=== PATIENT | female | born 1995 | race Caucasian/White ===

== ENCOUNTER 2018-02-24 08:24 | Observation (INO) ==
[2018-02-24] MEDS ORDERED: 0.9 % Sodium Chloride 1,000 ML IVC ONE (08:58)
[2018-02-24] MEDS ORDERED: Ondansetron 4 MG/2 ML VIAL IVP ONE (08:58)
[2018-02-24] MEDS ORDERED: Ketorolac 30 MG/ML VIAL IVP ONE (08:58)
[2018-02-24] MEDS ORDERED: Isovue-370 500 ML INFUS..BTL IV ONE (08:58)
--- NOTE | 2018-02-24 09:01 | Emergency Department Note ---
Disposition Clinical Impression: Acute cholecystitis Disposition: Admitted As Inpatient Condition: Good Time of Disposition: 10:36 General Adult HPI - General Chief complaint: ED Nausea/Vomiting/Diarrhea Stated complaint: Puking Time Seen by Provider: 02/24/18 08:43 Source: patient Mode of arrival: private vehicle Limitations: no limitations Nursing Notes Reviewed: Yes Vital Signs Reviewed: Yes - History of Present Illness HPI Narrative: Patient presents to the ED complaining of abdominal pain, nausea and vomiting. Symptoms began night before last and she was seen here yesterday morning for the same complaint. Laboratory studies were unremarkable and she felt better after IV fluids, Toradol and Zofran. Patient states after being discharged she threw up a few times yesterday morning and was feeling better. She was able to eat a cheeseburger yesterday evening and kept that down. She woke up again this morning however with pain and vomiting again. She states every time she vomited it is a yellowish orange liquid. This been no blood in it. Her pain is now in the right upper quadrant and she describes it as aching and stabbing. She rates it an 8 out of 10. Pain is intermittent and is not related specifically to meals or vomiting episodes. States that she took some Midol last night without improvement. She has been taking the Zofran but has continued to vomit. Her last Zofran was around 8 AM today. She is not vomited since that dose. Denies any diarrhea or constipation. She continues to have some dysuria but no frequency or urgency. No fever or chills. No recent travel. Her only abdominal surgery is a . Pain Scale: 6 - Related Data Previous Rx's Medication Instructions Recorded Ondansetron ODT [Zofran ODT] 4 mg SL Q6HR #10 tab.rapdis 02/23/18 Allergies Allergy/AdvReac Type Severity Reaction Status Date / Time No Known Allergies Allergy Verified 11/06/17 02:43 Constitutional: Denies: fever, chills, weakness, weight change Eyes: Denies: eye pain, eye discharge, vision change ENT ED: Denies: ear pain, throat pain, dental pain, hearing loss, epistaxis, congestion, dysphagia Cardiovascular: Denies: chest pain, palpitations, dyspnea on exertion, edema, syncope Respiratory: Denies: cough, dyspnea, wheezes, hemoptysis, stridor Gastrointestinal: Reports: as per HPI, abdominal pain, nausea, vomiting. Denies : diarrhea, constipation, hematemesis, melena, hematochezia Genitourinary: Reports: as per HPI, dysuria. Denies: urgency, frequency, hematuria Musculoskeletal: Denies: back pain, neck pain, arthralgia, myalgia Integumentary: Denies: rash, abrasion, lesions Neurological: Denies: headache, weakness, numbness, paresthesias, confusion, abnormal gait, vertigo Psychiatric: Denies: anxiety, depression, suicidal thoughts, homicidal thoughts , auditory hallucinations, visual hallucinations Endocrine: Denies: fatigue Hematological/Lymphatic: Denies: easy bleeding, easy bruising Allergic/Immunologic: Denies: facial swelling, urticaria Past Medical History - Past Medical History Medical history: Reports: asthma, seizures Surgical history: Reports: Psychiatric history: Reports: anxiety, bipolar BELL CAPTAIN history: Reports: no BELL CAPTAIN history - Social History Smoking Status: Current every day smoker Smokeless Tobacco Status: No Alcohol use: Reports: none Drug use: Reports: none Physical Exam - General Limitations: no limitations General appearance: alert, in no apparent distress - Head Head exam: atraumatic, normocephalic, normal inspection - Eye Eye exam: Present: normal appearance - ENT ENT exam: normal exam, normal oropharynx, mucous membranes moist - Neck Neck exam: Present: normal inspection, full ROM, trachea midline - Chest Chest inspection: Present: normal inspection, symmetric chest wall rise - Respiratory Respiratory exam: Present: normal lung sounds bilaterally - Cardiovascular Cardiovascular exam: Present: regular rate, normal rhythm, normal heart sounds - Abdominal Exam Abdominal exam: Present: soft, tenderness, normal bowel sounds. Absent: distention, guarding, rebound, rigidity, Dalton's sign Abdominal tenderness: Present: RUQ, epigastrium, moderate - Extremities Exam Extremities exam: Present: normal inspection, full ROM. Absent: tenderness, pedal edema - Back Exam Back exam: Present: normal inspection, full ROM. Absent: tenderness, CVA tenderness (R), CVA tenderness (L) - Neurological Exam Neurological exam: Present: alert, oriented X3 - Psychiatric Psychiatric exam: Present: normal affect, normal mood - Skin Skin exam: Present: warm, dry, intact, normal color Course Course Narrative: She returns to the ED with persistent intermittent upper abdominal pain, nausea and vomiting. Her laboratory workup yesterday was unremarkable. Her symptom pattern is not classic for biliary colic but given location of pain and description of what may be bilious emesis will investigate further if this possibility with repeat labs and imaging. We will give fluids along with medication for pain and nausea. Patient will be signed out to Dr. Hernandez for follow-up and final disposition based on test results and ED course. - Reevaluation(s) Reevaluation #1: Spoke with Dr. Koehler he recommended admitting the patient here to the hospitalist and he will do surgery in the morning. Patient is agreeable with this plan. He recommended pain control, antiemetics and antibiotics. Time: 10:34 Vital Signs Temperature 98.0 F 02/24/18 08:32 Pulse Rate 80 02/24/18 08:32 Respiratory Rate 16 02/24/18 08:32 Blood Pressure 147/91 02/24/18 08:32 O2 Sat by Pulse Oximetry 98 02/24/18 08:32 Temperature 98.0 F 02/24/18 08:32 Pulse Rate 80 02/24/18 08:32 Respiratory Rate 16 02/24/18 08:32 Blood Pressure 147/91 02/24/18 08:32 O2 Sat by Pulse Oximetry 98 02/24/18 08:32 Oxygen Delivery Oxygen Delivery Room Air Medical Decision Making - Medical Records Medical records reviewed: Yes I reviewed the patient's medical records. - Lab Data Lab results reviewed: Yes I reviewed the patient's lab results. Result diagrams: 02/24/18 09:05 02/24/18 09:05 Lab Results 02/24/18 02/24/18 02/24/18 Range/Units 09:03 09:03 09:05 WBC 13.1 H (4.3-11.1) K/mcL RBC 4.07 (3.82-4.97) M/mcL Hgb 12.3 (11.5-15.4) g/dL Hct 36.5 (35.3-44.9) % MCV 89.7 (83.0-100.0) fL MCH 30.2 (28.0-33.3) pg MCHC 33.7 (31.6-35.5) g/dL RDW 12.3 (11.5-14.5) % Plt Count 240 (140-400) K/mcL MPV 10.5 (9.4-12.4) fL Immature Gran % 0.4 (0-4) % Seg Neutrophils % 82.1 % Lymphocytes % 11.0 % Monocytes % 4.3 % Eosinophils % 1.8 % Basophils % 0.4 % Neutrophils # 10.8 H (1.6-8.9) K/mcL Lymphocytes # 1.4 (0.6-4.6) K/mcL Monocytes # 0.6 (0.0-1.3) K/mcL Eosinophils # 0.2 (0.0-0.6) K/mcL Basophils # 0.1 (0.0-0.2) K/mcL Sodium (136-145) mEq/L Potassium (3.5-5.1) mEq/L Chloride (98-107) mEq/L Carbon Dioxide (23-29) mEq/L BUN (6-20) mg/dL Creatinine (0.60-1.20) mg/dL Est GFR ( Amer) (> 60) Est GFR (Non-Af Amer) (> 60) BUN/Creatinine Ratio (6-26) Glucose (70-105) mg/dL Calculated Osmolality (280-300) Calcium (8.6-10.3) mg/dL Total Bilirubin (0.3-1.0) mg/dL AST (13-39) Units/L ALT (7-52) Units/L Alkaline Phosphatase (34-104) Units/L Serum Total Protein (6.4-8.9) g/dL Albumin (3.5-5.7) g/dL Globulin (2.4-3.5) g/dL Albumin/Globulin Ratio (1.1-2.2) Lipase (11-82) Units/L Urine Color Yellow (Yellow) Urine Clarity Clear (Clear) Urine pH 5.5 (5.0-8.0) pH Units Ur Specific [place] >= 1.030 H (1.010-1.025) Urine Protein 30 H (Neg-Trace) mg/dL Urine Glucose (UA) Normal (Normal) mg/dL Urine Ketones Trace H (Negative) mg/dL Urine Blood Small H (Negative) Urine Nitrite Negative (Negative) Urine Bilirubin Small H (Negative) Urine Urobilinogen Normal (Normal) mg/dL Ur Leukocyte Esterase Negative (Negative) Urine Microscopic RBC 3-5 H (0-3) per hpf Urine Microscopic WBC 0-3 (0-3) per hpf Ur Squamous Epith Cells Few (None-Few) per lpf Ur Culture Indicated? NO (NO) Urine Test Negative (Negative) 02/24/18 Range/Units 09:05 WBC (4.3-11.1) K/mcL RBC (3.82-4.97) M/mcL Hgb (11.5-15.4) g/dL Hct (35.3-44.9) % MCV (83.0-100.0) fL MCH (28.0-33.3) pg MCHC (31.6-35.5) g/dL RDW (11.5-14.5) % Plt Count (140-400) K/mcL MPV (9.4-12.4) fL Immature Gran % (0-4) % Seg Neutrophils % % Lymphocytes % % Monocytes % % Eosinophils % % Basophils % % Neutrophils # (1.6-8.9) K/mcL Lymphocytes # (0.6-4.6) K/mcL Monocytes # (0.0-1.3) K/mcL Eosinophils # (0.0-0.6) K/mcL Basophils # (0.0-0.2) K/mcL Sodium 138 (136-145) mEq/L Potassium 3.7 (3.5-5.1) mEq/L Chloride 105 (98-107) mEq/L Carbon Dioxide 26 (23-29) mEq/L BUN 10 (6-20) mg/dL Creatinine 0.60 (0.60-1.20) mg/dL Est GFR ( Amer) > 60 (> 60) Est GFR (Non-Af Amer) > 60 (> 60) BUN/Creatinine Ratio 17 (6-26) Glucose 100 (70-105) mg/dL Calculated Osmolality 285 (280-300) Calcium 9.1 (8.6-10.3) mg/dL Total Bilirubin 0.5 (0.3-1.0) mg/dL AST 10 L (13-39) Units/L ALT 8 (7-52) Units/L Alkaline Phosphatase 51 (34-104) Units/L Serum Total Protein 6.8 (6.4-8.9) g/dL Albumin 4.0 (3.5-5.7) g/dL Globulin 2.8 (2.4-3.5) g/dL Albumin/Globulin Ratio 1.4 (1.1-2.2) Lipase 8 L (11-82) Units/L Urine Color (Yellow) Urine Clarity (Clear) Urine pH (5.0-8.0) pH Units Ur Specific [place] (1.010-1.025) Urine Protein (Neg-Trace) mg/dL Urine Glucose (UA) (Normal) mg/dL Urine Ketones (Negative) mg/dL Urine Blood (Negative) Urine Nitrite (Negative) Urine Bilirubin (Negative) Urine Urobilinogen (Normal) mg/dL Ur Leukocyte Esterase (Negative) Urine Microscopic RBC (0-3) per hpf Urine Microscopic WBC (0-3) per hpf Ur Squamous Epith Cells (None-Few) per lpf Ur Culture Indicated? (NO) Urine Test (Negative) - Radiology Data Radiology results reviewed: Yes I reviewed the patient's radiology results. Patient's CT of abdomen and pelvis was interpreted by the radiologist as positive for acute cholecystitis. Results discussed with patient. Karan - Karan Situation: Demographics, MOA Background: Presenting Complaint, Relevant PMH, Meds, & Allergies Assessment: Vital Signs, Course and respsone to treatment, Exam Concerns, Patient/Family Expectation, Pertinant Lab Results, Outstanding Labs Recommendation: Barrier(s) to disposition, Recommendation based on pending studies, treatments, or consults Karan Report Given to: Dr. Mary Russo Repor Time: 09:05
[2018-02-24 09:19] LABS: Basophils # 0.1 K/mcL (0.0-0.2); Basophils % 0.4 %; Eosinophils # 0.2 K/mcL (0.0-0.6); Eosinophils % 1.8 %; Hematocrit 36.5 % (35.3-44.9); Hemoglobin 12.3 g/dL (11.5-15.4); Immature Granulocytes % 0.4 % (0-4); Lymphocytes # 1.4 K/mcL (0.6-4.6); Mean Corpuscular HGB Conc 33.7 g/dL (31.6-35.5); Mean Corpuscular Hemoglobin 30.2 pg (28.0-33.3); Mean Corpuscular Volume 89.7 fL (83.0-100.0); Mean Platelet Volume 10.5 fL (9.4-12.4); Monocytes # 0.6 K/mcL (0.0-1.3); Monocytes % 4.3 %; Neutrophils # 10.8 K/mcL (1.6-8.9); Platelet Count 240 K/mcL (140-400); Red Blood Count 4.07 M/mcL (3.82-4.97); Red Cell Distribution Width 12.3 % (11.5-14.5); Segmented Neutrophils % 82.1 %
[2018-02-24 09:29] LABS: Alanine Aminotransferase 8 Units/L (7-52); Albumin/Globulin Ratio 1.4 (1.1-2.2); Alkaline Phosphatase 51 Units/L (34-104); Aspartate Amino Transferase 10 Units/L (13-39); BUN/Creatinine Ratio 17 (6-26); Bilirubin,Total 0.5 mg/dL (0.3-1.0); Blood Urea Nitrogen 10 mg/dL (6-20); Calcium 9.1 mg/dL (8.6-10.3); Carbon Dioxide 26 mEq/L (23-29); Chloride 105 mEq/L (98-107); Globulin 2.8 g/dL (2.4-3.5); Glucose 100 mg/dL (70-105); Lipase 8 Units/L (11-82); Osmolality,Calculated 285 (280-300); Potassium 3.7 mEq/L (3.5-5.1); Sodium 138 mEq/L (136-145); Total Protein 6.8 g/dL (6.4-8.9); eGFR For Non-African Americans > 60 (> 60)
[2018-02-24 09:33] LABS: Bilirubin,Urine Small (Negative); Blood,Urine Small (Negative); Clarity,Urine Clear (Clear); Color,Urine Yellow (Yellow); Glucose,Urine (UA) Normal (Normal); Ketones,Urine Trace mg/dL (Negative); Leukocyte Esterase,Urine Negative (Negative); Nitrite,Urine Negative (Negative); PH,Urine 5.5 pH Units (5.0-8.0); Protein,Urine 30 mg/dL (Neg-Trace); Specific Gravity,Urine >= 1.030 (1.010-1.025); Urobilinogen,Urine Normal (Normal)
[2018-02-24 09:34] LABS: Squamous Epithelial Cell,Urine Few per lpf (None-Few); WBC,Urine 0-3 per hpf (0-3)
[2018-02-24] MEDS ORDERED: Piperacillin/Tazobactam 3.375 GM in 0.9 % Sodium Chloride Mini Bag 100 ML IVPB ONE (09:42)
[2018-02-24] MEDS ORDERED: Naloxone 0.4 MG/ML INJ IVP PRN (10:43)
[2018-02-24] MEDS ORDERED: Ondansetron 4 MG/2 ML VIAL IVP PRN ×2 (10:43→12:08)
[2018-02-24] MEDS ORDERED: *HR* Morphine 2 MG/ML SYRINGE IVP PRN (10:43)
[2018-02-24] MEDS ORDERED: Acetaminophen 325 MG TABLET PO PRN (10:43)
[2018-02-24] MEDS ORDERED: Piperacillin/Tazobactam 3.375 GM in Water for inj. (sterile) 20 ML 20 ML IVP ONE (11:45)
[2018-02-24] MEDS ORDERED: Piperacillin/Tazobactam 3.375 GM in Water for inj. (sterile) 20 ML 20 ML IVP SCH (12:00)
--- NOTE | 2018-02-24 12:19 | Internal Med History&Physical ---
Date of Encounter: 02/24/18 Time of Encounter: 12:34 Assessment and Plan (1) Acute cholecystitis Current visit: Yes Status: Acute Patient presented to emergency department with complaints of abdominal pain and nausea. CT of the abdomen showed acute cholecystitis with a 1.5 cm stone present. Patient was admitted to nursing unit overnight in preparation for surgery in the morning with Dr. Polk. Patient also is being admitted for pain management and management of her nausea. On presentation to the nursing unit patient states that she is pain-free at this time and denies any nausea. Patient will continue with IV fluids overnight and will be nothing by mouth after midnight. (2) Asthma Current visit: Yes Status: Chronic Patient with history of asthma and states that she continues to use a rescue inhaler of albuterol several times weekly. Patient denies any current dyspnea or productive cough. Noted slight expiratory wheeze her to upper [place]. We will continue with when necessary albuterol inhaler. We will obtain chest x- ray. Qualifiers: Asthma severity: unspecified severity Asthma persistence: unspecified Asthma complication type: unspecified Qualified Code(s): J45.909 - Unspecified asthma, uncomplicated (3) Bipolar 1 disorder Current visit: Yes Status: Chronic No acute issues. Patient appears pleasant has been interacting well with staff. Patient states that she has not been taking her psychiatric medications in over 3 years due to her complaints of drowsiness. Patient states that she no longer does follow-up with psychiatry. We will continue to monitor. (4) Seizure Current visit: Yes Status: Chronic Patient states a history of seizures but after further questioning it was noted that her only seizure activity happened remotely when she was an infant. States no further seizure activity and has never taken any AED medications Internal Medicine - H&P: HPI Chief complaint: cholecystitis Admitted From: Home Plans for Post Hospital Care: Home History of present illness: Ms. Burns is a 22 year old female who presented to the emergency department yesterday with complaints of right upper quadrant abdominal pain and vomiting. He was treated at time with Zofran and IV fluids and after showing relief was discharged to home with follow-up planned. Patient returned to the emergency department this morning with a return of these symptoms. Patient had a CAT scan of the abdomen which shows cholecystitis and the presence of a 1-1/2 cm stone. Patient was then admitted to in-house nursing unit for management of her nausea and pain and being prepared for surgery for in the morning. Patient is arranged to have surgery with Dr. Polk in the morning. Patient states that she is currently pain free and no nausea. States history of Asthma and that she has been using her rescue inhaler several times weekly. Denies any current productive cough or audible wheezing. Patient denies any dyspnea or chest discomforts. Denies any fever or chills. Patient states that she does have a history of bipolar, but states that she has not taken her medications for several years and has not had follow-up. Patient states she started taking her medication because it made her drowsy and she had to toddlers at home. Patient also states a history of seizures in the past, but after further questioning it was found that her seizures occurred when she was an infant and has not had any recurrence of seizures since that time. Patient currently takes no AED medications Past Med Surg Social Fam HX - Past Medical History Medical history: asthma, seizures Psychiatric history: anxiety, bipolar - Past Surgical History Surgical History: - Social History Smoking Status: Current every day smoker Smokeless Tobacco Status: No Alcohol use: none Drug use: none Internal Medicine - H&P: Meds Ondansetron ODT [Zofran ODT] 4 mg SL Q6HR #10 tab.rapdis 02/23/18 [Rx] Albuterol Inhaler 2 PO 02/24/18 [History] 3 Allergy/AdvReac Type Severity Reaction Status Date / Time Penicillins Allergy Vomiting Verified 02/24/18 12:58 All Systems PM: A 10-system review of systems was performed and is negative for pertinent findings except as documented above in the HPI. - Constitutional Constitutional: no chills, no fever(s), no night sweats - EENT Eyes: no change in vision, no discharge, no pain, no photophobia Ears: no ear discharge, no ear pain, no tinnitus Nose, mouth and throat: no dysphagia, no nasal discharge, no neck pain, no sore throat - Cardiovascular Cardiovascular ROS IM: as per HPI, no chest pain, no diaphoresis, no dyspnea, no lightheadedness, no palpitations, no syncope - Respiratory Respiratory: as per HPI, no cough, no dyspnea, no wheezing, no excessive phlegm production - Gastrointestinal Gastrointestinal: as per HPI, no abdominal pain, no diarrhea, no hematemesis, no hematochezia, no melena, no nausea, no vomiting - Genitourinary Genitourinary: no change in urinary stream, no dysuria, no flank pain, no hematuria - Musculoskeletal Musculoskeletal ROS IM: no numbness, no tingling - Integumentary Integumentary IM: no rash, no unusual bruising - Neurological Neurological ROS: no confusion, no convulsions, no focal weakness, no numbness, no tingling, no tremor(s) - Hematologic/Lymphatic Hematologic/Lymphatic: no easy bruising - Constitutional Vitals: Temp Pulse Resp BP Pulse Ox 98.0 F 80 16 135/72 98 02/24/18 08:32 02/24/18 08:32 02/24/18 11:42 02/24/18 11:42 02/24/18 08:32 General appearance: Present: A&O X 3, pleasant - Head Head exam: Present: atraumatic, normocephalic - Eye Eye exam: Present: PERRL, conjuntiva pink, sclera anicteric Pupils: Present: PERRL - Neck Neck exam general surgery: Present: supple, trachea midline. Absent: lymphadenopathy - Respiratory Respiratory exam: Present: CTAB, wheezes. Absent: accessory muscle use, rales, rhonchi Additional comments: Patient has slight expiratory wheeze heard to upper [place]ard but otherwise lungs are clear throughout. Respiratory effort appears relaxed. No productive cough. - Cardiovascular Cardiovascular exam: Present: RRR, +S1, +S2. Absent: diastolic murmur, gallop, rubs, systolic murmur - GI/Abdominal GI/Abdominal exam: Present: normal bowel sounds, soft, no peritoneal signs. Absent: distended, tenderness - Extremities Exam Extremities exam: Present: warm, radial pulses palpable and symmetrical. Absent : calf tenderness, cyanotic, pedal edema - Neurological Exam Neurological exam: Present: CN II-XII intact, oriented X3, no focal deficits. Absent: pronater drift, facial droop, speech deficit - Skin Skin exam: Present: dry, intact Internal Med - H&P Results - Labs CBC & Chem 7: 02/24/18 09:05 02/24/18 09:05
[2018-02-24] MEDS: 0.9 % Sodium Chloride 1,000 ML IVC SCH ×2 (13:10→20:54)
[2018-02-24] MEDS ORDERED: Clindamycin 900 MG/50 ML 900 MG/50 ML IV.SOLN IVPB ONE (13:30)
[2018-02-24] MEDS ORDERED: *HR* OxyCODONE Immed Rel 5 MG TABLET PO PRN ×2 (17:39→17:41)
[2018-02-24] MEDS ORDERED: Piperacillin/Tazobactam 3.375 GM in 0.9 % Sodium Chloride Mini Bag 100 ML IVPB SCH (18:00)
[2018-02-24] MEDS: *HR* Morphine 2 MG/ML SYRINGE IVP PRN (22:59)
[2018-02-25] MEDS: *HR* Morphine 2 MG/ML SYRINGE IVP PRN (03:27)
[2018-02-25] MEDS: 0.9 % Sodium Chloride 1,000 ML IVC SCH (04:54)
[2018-02-25 05:45] LABS: Basophils # 0.1 K/mcL (0.0-0.2); Basophils % 0.4 %; Eosinophils # 0.5 K/mcL (0.0-0.6); Eosinophils % 3.7 %; Hematocrit 32.7 % (35.3-44.9); Hemoglobin 10.9 g/dL (11.5-15.4); Immature Granulocytes % 0.3 % (0-4); Lymphocytes % 15.2 %; Mean Corpuscular HGB Conc 33.3 g/dL (31.6-35.5); Mean Corpuscular Hemoglobin 30.1 pg (28.0-33.3); Mean Corpuscular Volume 90.3 fL (83.0-100.0); Mean Platelet Volume 10.8 fL (9.4-12.4); Monocytes # 0.8 K/mcL (0.0-1.3); Monocytes % 6.3 %; Platelet Count 212 K/mcL (140-400); Red Blood Count 3.62 M/mcL (3.82-4.97); Red Cell Distribution Width 12.5 % (11.5-14.5); Segmented Neutrophils % 74.1 %
[2018-02-25 05:46] LABS: INR 1.2; Prothrombin Time 13.5 Seconds (9.4-12.1)
[2018-02-25 05:47] LABS: Neutrophils # 9.6 K/mcL (1.6-8.9)
[2018-02-25 05:49] LABS: Activated Partial Thrombo Time 30.6 Seconds (26.0-36.0)
[2018-02-25 06:01] LABS: Alanine Aminotransferase 6 Units/L (7-52); Albumin 3.5 g/dL (3.5-5.7); Albumin/Globulin Ratio 1.4 (1.1-2.2); Alkaline Phosphatase 47 Units/L (34-104); Aspartate Amino Transferase 9 Units/L (13-39); BUN/Creatinine Ratio 11 (6-26); Bilirubin,Total 0.6 mg/dL (0.3-1.0); Blood Urea Nitrogen 5 mg/dL (6-20); Calcium 8.5 mg/dL (8.6-10.3); Carbon Dioxide 25 mEq/L (23-29); Chloride 108 mEq/L (98-107); Globulin 2.5 g/dL (2.4-3.5); Glucose 100 mg/dL (70-105); Magnesium 1.7 mg/dL (1.6-2.6); Osmolality,Calculated 283 (280-300); Potassium 3.6 mEq/L (3.5-5.1); Sodium 138 mEq/L (136-145); eGFR For Non-African Americans > 60 (> 60)
[2018-02-25] MEDS ORDERED: *HR* Propofol 200 MG/20 ML VIAL IVP ONE ×2 (07:32→08:11)
--- NOTE | 2018-02-25 07:34 | Anesthesia Evaluation PreOp ---
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 History: Other (Bipolar disorder, severe anxiety, history of seizures as an ) Anesthesia History: Past Anesthesia (C/S - SAB, No GA) Alcohol Use: none Drug use: none Medications and Allergies Ondansetron ODT [Zofran ODT] 4 mg SL Q6HR #10 tab.rapdis 02/23/18 [Rx] Albuterol Inhaler 2 PO 02/24/18 [History] 3 Allergy/AdvReac Type Severity Reaction Status Date / Time Penicillins Allergy Vomiting Verified 02/24/18 12:58 - Meds/Allergy Pre-op Review Medications Reviewed: Yes Allergies Reviewed: Yes Beta Blockers on Current Med List: No Anesthesia Results - Labs 02/25/18 05:20 02/25/18 05:20 Laboratory Last Values WBC 12.9 K/mcL (4.3-11.1) H 02/25/18 05:20 RBC 3.62 M/mcL (3.82-4.97) L 02/25/18 05:20 Hgb 10.9 g/dL (11.5-15.4) L 02/25/18 05:20 Hct 32.7 % (35.3-44.9) L 02/25/18 05:20 MCV 90.3 fL (83.0-100.0) 02/25/18 05:20 MCH 30.1 pg (28.0-33.3) 02/25/18 05:20 MCHC 33.3 g/dL (31.6-35.5) 02/25/18 05:20 RDW 12.5 % (11.5-14.5) 02/25/18 05:20 Plt Count 212 K/mcL (140-400) 02/25/18 05:20 MPV 10.8 fL (9.4-12.4) 02/25/18 05:20 Immature Gran % 0.3 % (0-4) 02/25/18 05:20 Seg Neutrophils % 74.1 % 02/25/18 05:20 Lymphocytes % 15.2 % 02/25/18 05:20 Monocytes % 6.3 % 02/25/18 05:20 Eosinophils % 3.7 % 02/25/18 05:20 Basophils % 0.4 % 02/25/18 05:20 Neutrophils # 9.6 K/mcL (1.6-8.9) H 02/25/18 05:20 Lymphocytes # 2.0 K/mcL (0.6-4.6) 02/25/18 05:20 Monocytes # 0.8 K/mcL (0.0-1.3) 02/25/18 05:20 Eosinophils # 0.5 K/mcL (0.0-0.6) 02/25/18 05:20 Basophils # 0.1 K/mcL (0.0-0.2) 02/25/18 05:20 PT 13.5 Seconds (9.4-12.1) H 02/25/18 05:20 INR 1.2 02/25/18 05:20 APTT 30.6 Seconds (26.0-36.0) 02/25/18 05:20 Sodium 138 mEq/L (136-145) 02/25/18 05:20 Potassium 3.6 mEq/L (3.5-5.1) 02/25/18 05:20 Chloride 108 mEq/L (98-107) H 02/25/18 05:20 Carbon Dioxide 25 mEq/L (23-29) 02/25/18 05:20 BUN 5 mg/dL (6-20) L 02/25/18 05:20 Creatinine 0.46 mg/dL (0.60-1.20) L 02/25/18 05:20 Est GFR ( Amer) > 60 (> 60) 02/25/18 05:20 Est GFR (Non-Af Amer) > 60 (> 60) 02/25/18 05:20 BUN/Creatinine Ratio 11 (6-26) 02/25/18 05:20 Glucose 100 mg/dL (70-105) 02/25/18 05:20 Calculated Osmolality 283 (280-300) 02/25/18 05:20 Calcium 8.5 mg/dL (8.6-10.3) L 02/25/18 05:20 Magnesium 1.7 mg/dL (1.6-2.6) 02/25/18 05:20 Total Bilirubin 0.6 mg/dL (0.3-1.0) 02/25/18 05:20 AST 9 Units/L (13-39) L 02/25/18 05:20 ALT 6 Units/L (7-52) L 02/25/18 05:20 Alkaline Phosphatase 47 Units/L (34-104) 02/25/18 05:20 Serum Total Protein 6.0 g/dL (6.4-8.9) L 02/25/18 05:20 Albumin 3.5 g/dL (3.5-5.7) 02/25/18 05:20 Globulin 2.5 g/dL (2.4-3.5) 02/25/18 05:20 Albumin/Globulin Ratio 1.4 (1.1-2.2) 02/25/18 05:20 Lipase 8 Units/L (11-82) L 02/24/18 09:05 Urine Color Yellow (Yellow) 02/24/18 09:03 Urine Clarity Clear (Clear) 02/24/18 09:03 Urine pH 5.5 pH Units (5.0-8.0) 02/24/18 09:03 Ur Specific [place] >= 1.030 (1.010-1.025) H 02/24/18 09:03 Urine Protein 30 mg/dL (Neg-Trace) H 02/24/18 09:03 Urine Glucose (UA) Normal mg/dL (Normal) 02/24/18 09:03 Urine Ketones Trace mg/dL (Negative) H 02/24/18 09:03 Urine Blood Small (Negative) H 02/24/18 09:03 Urine Nitrite Negative (Negative) 02/24/18 09:03 Urine Bilirubin Small (Negative) H 02/24/18 09:03 Urine Urobilinogen Normal mg/dL (Normal) 02/24/18 09:03 Ur Leukocyte Esterase Negative (Negative) 02/24/18 09:03 Urine Microscopic RBC 3-5 per hpf (0-3) H 02/24/18 09:03 Urine Microscopic WBC 0-3 per hpf (0-3) 02/24/18 09:03 Ur Squamous Epith Cells Few per lpf (None-Few) 02/24/18 09:03 Ur Culture Indicated? NO (NO) 02/24/18 09:03 Urine Test Negative (Negative) 02/24/18 09:03 Blood Type O NEGATIVE 02/25/18 05:20 Antibody Screen NEGATIVE 02/25/18 05:20 - Imaging Additional studies: Active Medications Acetaminophen (Tylenol) 650 mg PO Q6HR PRN PRN Reason: Mild Pain/Fever Stop: 08/26/18 10:44 Last Admin: 02/24/18 14:55 Dose: 650 mg Albuterol Sulfate (Albuterol Inhaler) 2 puff IH [id number] PRN PRN Reason: Shortness Of Breath/Wheezing Stop: 08/26/18 12:08 Sodium Chloride (0.9 % Sodium Chloride) 1,000 mls @ 125 mls/hr IVC .Q8H LAURIE Last Admin: 02/25/18 04:54 Dose: 125 mls/hr Cefoxitin Sodium 2,000 mg/ (Sterile Water) 20 mls @ 300 mls/hr IVP ONCE ONE Stop: 02/25/18 14:14 Clindamycin Phosphate/Dextrose (Cleocin Premix 900 Mg/50 Ml) 900 mg in 50 mls @ 100 mls/hr IVPB PREOP ONE Stop: 02/25/18 09:29 Morphine Sulfate (Morphine Sulfate) 3 mg IVP Q2H PRN; Protocol PRN Reason: pain not relived by po meds Stop: 08/26/18 17:43 Last Admin: 02/25/18 03:27 Dose: 3 mg Ondansetron HCl (Zofran) 4 mg IVP Q6HR PRN PRN Reason: Nausea And Vomiting Stop: 08/26/18 10:44 Last Admin: 02/25/18 01:05 Dose: 4 mg Oxycodone HCl (Roxicodone) 5 mg PO Q4HR PRN; Protocol PRN Reason: Moderate Pain Stop: 08/26/18 17:40 Oxycodone HCl (Roxicodone) 10 mg PO Q4HR PRN; Protocol PRN Reason: Severe Pain Stop: 08/26/18 17:42 Anesthesia Exam Vital Signs Temp Pulse Resp BP Pulse Ox 98.0 F 80 16 147/91 98 02/24/18 08:32 02/24/18 08:32 02/24/18 08:32 02/24/18 08:32 02/24/18 08:32 HEIGHT 1.65 m WEIGHT 69 kg BMI 25 NPO (# of Hours): 8 - HEENT Mallampati: I Teeth: Normal (Overbite) Oral Opening: Greater than 3 - Cardiac Rhythm: Regular - Pulmonary Breath Sounds: bilateral Clear, bilateral Rhonchi Respiratory Effort: Symmetrical Anesthesia Assess/Plan ASA Score: 2 Modified [place] Scale for Level of Consciousness: Cooperative, oriented, and tranquil Anesthetic Plan: General Monitoring Plan: Standard Monitors Recovery Plan: PACU Anes Supervising Prov Stmt: Patient informed and consented. Risks, benefits, and alternatives discussed. Patient wishes to proceed.
[2018-02-25] MEDS ORDERED: *HR* FentaNYL (PF) 100 MCG/2 ML VIAL ONE (07:35)
[2018-02-25] MEDS ORDERED: Lidocaine -MPF 4% 5 ML AMPUL ONE (07:39)
[2018-02-25] MEDS ORDERED: Albuterol 2.5 MG/3 ML NEBULIZER ONE (07:42)
[2018-02-25] MEDS ORDERED: Albuterol 2.5 MG/3 ML NEBULIZER IH ONE (07:46)
[2018-02-25] MEDS ORDERED: Lidocaine -MPF 2% 2 ML VIAL ONE ×2 (07:48→10:35)
[2018-02-25] MEDS ORDERED: CefOXitin 2,000 MG VIAL ONE (07:49)
[2018-02-25] MEDS ORDERED: Clindamycin 900 MG/50 ML 900 MG/50 ML IV.SOLN IVPB ONE (09:00)
[2018-02-25] MEDS ORDERED: Dexamethasone 4 MG/ML VIAL ONE (09:08)
[2018-02-25] MEDS ORDERED: Ondansetron 4 MG/2 ML VIAL ONE (09:08)
--- NOTE | 2018-02-25 09:10 | General Surgery Consult Note ---
Date of Encounter: 02/25/18 Time of Encounter: 09:08 Assessment and Plan (1) Acute cholecystitis Current Visit: Yes Status: Acute Plan for laparoscopic cholecystectomy and cholangiogram. Risks, benefits, and expected outcomes were explained to the patient and she agrees to proceed. History of Present Illness Consult date: 02/25/18 Reason for consult: abdominal pain History of present illness: This is a 22-year-old female presents to the emergency department with right upper quadrant abdominal pain. She underwent evaluation in the ED and was found to have inflammation surrounding her gallbladder consistent with acute cholecystitis. Her symptomatology appeared to be same. She reports pain that began approximately 2 months ago. It was intermittent at times and now has become more persistent. She states pizzas and exacerbating factor. She rates the pain at 10 out 10 limits at its worst. Past Med Surg Social Fam HX - Past Medical History Medical history: asthma, seizures Psychiatric history: anxiety, bipolar - Past Surgical History Surgical History: Additional surgical history: tonsils - Social History Smoking Status: Current every day smoker Packs per day: 2 Smokeless Tobacco Status: No Alcohol use: none Drug use: none Medications and Allergies Ondansetron ODT [Zofran ODT] 4 mg SL Q6HR #10 tab.rapdis 02/23/18 [Rx] Albuterol Inhaler 2 PO 02/24/18 [History] 3 Allergy/AdvReac Type Severity Reaction Status Date / Time Penicillins Allergy Vomiting Verified 02/24/18 12:58 Review of Systems All systems PM: reviewed and no additional remarkable complaints except as stated All systems PM: The remainder of the systems were reviewed and are negative General Surgery Exam Initial Vital Signs Temp Pulse Resp BP Pulse Ox 98.0 F 80 16 147/91 98 02/24/18 08:32 02/24/18 08:32 02/24/18 08:32 02/24/18 08:32 02/24/18 08:32 - General physical appearance well developed, well nourished - Neck trachea midline - Respiratory normal respiratory effort - Cardiovascular Cardiovascular exam: Present: RRR - Abdomen Abdomen general surgery: Present: soft, tender Abdominal Tenderness: Present: RUQ - Integumentary Integumentary general surgery: Present: warm and dry, no abnormal pigmentation - Neurologic Present: CN 2-12 grossly intact, normal sensation Exam Initial Vital Signs Temp Pulse Resp BP Pulse Ox 98.0 F 80 16 147/91 98 02/24/18 08:32 02/24/18 08:32 02/24/18 08:32 02/24/18 08:32 02/24/18 08:32 Results - Labs 02/25/18 05:20 02/25/18 05:20 Abnormal lab results WBC 12.9 K/mcL (4.3-11.1) H 02/25/18 05:20 RBC 3.62 M/mcL (3.82-4.97) L 02/25/18 05:20 Hgb 10.9 g/dL (11.5-15.4) L 02/25/18 05:20 Hct 32.7 % (35.3-44.9) L 02/25/18 05:20 Neutrophils # 9.6 K/mcL (1.6-8.9) H 02/25/18 05:20 PT 13.5 Seconds (9.4-12.1) H 02/25/18 05:20 Chloride 108 mEq/L (98-107) H 02/25/18 05:20 BUN 5 mg/dL (6-20) L 02/25/18 05:20 Creatinine 0.46 mg/dL (0.60-1.20) L 02/25/18 05:20 Calcium 8.5 mg/dL (8.6-10.3) L 02/25/18 05:20 AST 9 Units/L (13-39) L 02/25/18 05:20 ALT 6 Units/L (7-52) L 02/25/18 05:20 Serum Total Protein 6.0 g/dL (6.4-8.9) L 02/25/18 05:20 Lipase 8 Units/L (11-82) L 02/24/18 09:05 Ur Specific [facility] >= 1.030 (1.010-1.025) H 02/24/18 09:03 Urine Protein 30 mg/dL (Neg-Trace) H 02/24/18 09:03 Urine Ketones Trace mg/dL (Negative) H 02/24/18 09:03 Urine Blood Small (Negative) H 02/24/18 09:03 Urine Bilirubin Small (Negative) H 02/24/18 09:03 Urine Microscopic RBC 3-5 per hpf (0-3) H 02/24/18 09:03 Diabetes panel 02/25/18 Range/Units 05:20 Sodium 138 (136-145) mEq/L Potassium 3.6 (3.5-5.1) mEq/L Chloride 108 H (98-107) mEq/L Carbon Dioxide 25 (23-29) mEq/L BUN 5 L (6-20) mg/dL Creatinine 0.46 L (0.60-1.20) mg/dL Glucose 100 (70-105) mg/dL Calcium 8.5 L (8.6-10.3) mg/dL AST 9 L (13-39) Units/L ALT 6 L (7-52) Units/L Alkaline Phosphatase 47 (34-104) Units/L Albumin 3.5 (3.5-5.7) g/dL Calcium panel 02/25/18 Range/Units 05:20 Calcium 8.5 L (8.6-10.3) mg/dL Albumin 3.5 (3.5-5.7) g/dL Pituitary panel 02/25/18 Range/Units 05:20 Sodium 138 (136-145) mEq/L Potassium 3.6 (3.5-5.1) mEq/L Chloride 108 H (98-107) mEq/L Carbon Dioxide 25 (23-29) mEq/L BUN 5 L (6-20) mg/dL Creatinine 0.46 L (0.60-1.20) mg/dL Glucose 100 (70-105) mg/dL Calcium 8.5 L (8.6-10.3) mg/dL Adrenal panel 02/25/18 Range/Units 05:20 Sodium 138 (136-145) mEq/L Potassium 3.6 (3.5-5.1) mEq/L Chloride 108 H (98-107) mEq/L Carbon Dioxide 25 (23-29) mEq/L BUN 5 L (6-20) mg/dL Creatinine 0.46 L (0.60-1.20) mg/dL Glucose 100 (70-105) mg/dL Calcium 8.5 L (8.6-10.3) mg/dL Total Bilirubin 0.6 (0.3-1.0) mg/dL AST 9 L (13-39) Units/L ALT 6 L (7-52) Units/L Alkaline Phosphatase 47 (34-104) Units/L Albumin 3.5 (3.5-5.7) g/dL All other labs normal. Consult Discharge Plan - Plan Instructions: Laparoscopic Cholecystectomy (DC), Deep Sedation (DC), Fall Prevention (DC) Referrals: Eduardo Koehler DO [Partnered Physician] -
[2018-02-25] MEDS ORDERED: *HR* Morphine 10 MG/ML VIAL ONE (09:50)
--- NOTE | 2018-02-25 10:09 | Anesthesia Evaluation Post Op ---
Date of Encounter: 02/25/18 Time of Encounter: 10:48 - Discharge PostOp Status: Transfer Patient to floor (Patient's vital signs have been reviewed. Patient is stable postoperatively and has adequately recovered from anesthesia. Patient is determined to have stable airway patency and respiratory function including respiratory rate and oxygen saturation. Patient has a stable heart rate, blood pressure and adequate hydration. Patients mental status is acceptable. Patients temperature is appropriate. Pain and nausea are adequately controlled.)
[2018-02-25] MEDS ORDERED: Ketorolac 30 MG/ML VIAL IVP ONE (10:10)
[2018-02-25] MEDS ORDERED: Albuterol 2.5 MG/3 ML NEBULIZER IH PRN (10:10)
[2018-02-25] MEDS ORDERED: *HR* Meperidine 25 MG/ML SYRINGE IVP PRN (10:10)
[2018-02-25] MEDS ORDERED: Ondansetron 4 MG/2 ML VIAL IVP ONE (10:10)
[2018-02-25] MEDS ORDERED: *HR* HYDROmorphone (PF) 1 MG/ML SYRINGE IVP PRN (10:10)
[2018-02-25] MEDS ORDERED: Propofol 500 MG/50 ML INFUS..BTL ONE (10:33)
[2018-02-25 11:37] VITALS: BP 106/68
--- NOTE | 2018-02-25 12:11 | Discharge Summary ---
Date of Encounter: 02/25/18 Time of Encounter: 12:07 - Discharge Diagnosis (1) Acute cholecystitis Priority: Primary Status: Acute Comments: Patient was admitted for cholecystitis and today had a cholecystectomy. Patient was seemingly postoperative appears awake and denies any current discomforts, shortness of breath or nausea. Tylenol stab wounds for her laparoscopic surgery appears dry and intact, sealed with surgical glue. Abdomen remains flat, soft and nontender. Patient to continue with scheduled follow-up with Dr. Polk. Patient instructions given for postoperative care. Patient will be given a prescription for Shelby for pain (2) Asthma Priority: Secondary Status: Chronic Comments: No acute issues. Patient continues to have very slight expiratory wheeze for 2 upper sheppard but otherwise lungs are clear throughout. Respiratory effort appears relaxed. He uses rescue inhaler after discharge at home. Patient recommended to follow-up with PCP. Qualifiers: Asthma severity: unspecified severity Asthma persistence: unspecified Asthma complication type: unspecified Qualified Code(s): J45.909 - Unspecified asthma, uncomplicated (3) Bipolar 1 disorder Priority: Secondary Status: Chronic Comments: No acute issues. No behavior issues reported per nursing staff. Patient currently is on no medications, but is recommended to follow up with her PCP. (4) Seizure Priority: Secondary Status: Chronic Comments: No acute issues. No seizure activity noted. Patient with a remote history of seizures during infancy. Currently on no AEDs and is recommended to continue follow-up with her PCP. Hospital course: Ms. Burns is a 22 year old female who was admitted to the emergency department yesterday for pain control and control nausea due to cholecystitis. Patient was scheduled for surgery today with Dr. Polk who performed a laparoscopic cholecystectomy. Patient tolerated surgery well and is currently alert with no complaints of pain or nausea. Surgical sites appear healthy. Vital signs are stable. Patient has tolerated clear liquids. Postoperative instructions were given to patient and she has been discharged to home with scheduled follow-up with Dr. Polk. He has been given a prescription for Shelby. All questions have been answered. Discharge discussed with: patient Time spent discussing smoking cessation with patient: 3 to 10 minutes - Time Spent with Patient Total time spent providing and/or coordinating discharge services: Less than 30 minutes - Discharge Medications Home Medications: Ondansetron ODT [Zofran ODT] 4 mg SL Q6HR #10 tab.rapdis 02/23/18 [Rx] Albuterol Inhaler 2 PO 02/24/18 [History] Allergies/Adverse Reactions: 3 Allergy/AdvReac Type Severity Reaction Status Date / Time Penicillins Allergy Vomiting Verified 02/24/18 12:58 Date of admission: 02/24/18 14:40 Primary care physician: PCP NONE Discharging clinician: Jay Thapa - Constitutional Vitals: Temp Pulse Resp BP Pulse Ox 98.6 F 67 16 106/68 95 02/25/18 11:35 02/25/18 11:35 02/25/18 11:35 02/25/18 11:35 02/25/18 11:35 General appearance: Present: A&O X 3, pleasant - Head Head exam: Present: atraumatic, normocephalic - Eye Eye exam: Present: PERRL, conjuntiva pink, sclera anicteric Pupils: Present: PERRL - Neck Neck exam general surgery: Present: supple, trachea midline. Absent: lymphadenopathy - Respiratory Respiratory exam: Present: CTAB. Absent: accessory muscle use, rales, rhonchi, wheezes - Cardiovascular Cardiovascular exam: Present: RRR, +S1, +S2. Absent: diastolic murmur, gallop, rubs, systolic murmur - GI/Abdominal GI/Abdominal exam: Present: normal bowel sounds, soft, no peritoneal signs. Absent: distended, tenderness Additional comments: Abdomen remains flat, soft and nontender. Patient has 4 stab-like wounds from her laparoscopic surgery which all remain dry and intact. - Extremities Exam Extremities exam: Present: warm, radial pulses palpable and symmetrical. Absent : calf tenderness, cyanotic, pedal edema - Neurological Exam Neurological exam: Present: CN II-XII intact, oriented X3, no focal deficits. Absent: pronater drift, facial droop, speech deficit - Skin Skin exam: Present: dry, intact - Patient Status Disposition: Home, Self-Care Condition: Good Functional capacity at discharge: independent ambulation Overall status at discharge: patient is progressing back to baseline - Discharge Instructions Instructions: Laparoscopic Cholecystectomy (DC), Deep Sedation (DC), Skin Adhesive Care (DC), Fall Prevention (DC) Follow Up With: Eduardo Koehler DO [Partnered Physician] - Additional Instructions: Follow-up with Dr. Koehler at the [facility] on March 11 at 2:05pm. Enter through the main entrance and use the RED phone that is on the registration desk to let the clinic know you are here. Please call the office if you are unable to keep this appointment or need to reschedule. - Diet and Activity Activity: increase activity as tolerated, resume usual activities as tolerated Diet: advance to your usual diet, low fat, low cholesterol - VTE Documentation of Mechanical Device: Graduated compression elastic hosiery
[2018-02-25] MEDS ORDERED: *HR* Succinylcholine 200 MG/10 ML VIAL IVP ONE (12:48)
[2018-02-25] MEDS ORDERED: *HR* Rocuronium Bromide 50 MG/5 ML VIAL IVC ONE (12:48)
[2018-02-25] MEDS ORDERED: cefOXitin 2,000 MG in Water for inj. (sterile) 20 ML 20 ML IVP ONE (14:11)
[2018-02-25] MEDS ORDERED: 0.9 % Sodium Chloride 1,000 ML IVC SCH (14:30)
--- NOTE | 2018-02-25 14:31 | Electrocardiograph Report ---
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
--- NOTE | 2018-03-02 09:01 | Operative Note ---
Date of procedure: 02/25/18 Pre-op diagnosis: Acute Cholecystitis Post-op diagnosis: same Procedure: Laparoscopic cholecystectomy with cholangiogram Anesthesia: CHRISTIANA Surgeon: Eduarod Koehler Was there an language assistant present: No Estimated blood loss (cc): 5 Specimen: Gallbladder Condition: stable Disposition: same day Procedure in Detail: After informed consent the patient was taken to the operating room. After adequate sedation anesthesia the abdomen was prepped and draped. A proper timeout was performed. Two towel clamps to place the umbilicus. A varies needle was placed at the umbilicus and a pneumo-peritoneum was created. A 12 mm incision was made at the umbilicus and a port was placed under direct visualization. An 5 mm incision was created in the left upper quadrant, followed by one in the right upper quadrant. There were 2 individual 5 mm cannulas then placed in the RUQ. A alligator clamp was then placed on the gallbladder was retracted anteriorly and cephalad. The infundibulum of the gallbladder was identified and the cystic duct was skeletonized. Once the structures were identified the cystic duct was clipped twice proximally and once distally. A cholangiogram was performed and found to have flow into the hepatic radicals and duodenum. Cystic duct was then transected. The gallbladder was then resected off the liver surface. Once the gallbladder was fully resected from the liver surface, the liver was gently irrigated and suctioned dry. We ensured hemostasis prior to removing the gallbladder through the umbilical port. Pneumoperitoneum was then evacuated. The 12 mm cannula site was closed with a 0-Vicryl suture in [id number] fashion. The port sites were injected with half percent Marcaine 30 mL. The skin was closed with 4-0 Vicryl suture and Dermabond. All instrument counts and needle counts were correct at the end of the case. The pt was taken to recovery in stable condition.
== END 2018-02-25 12:49 | disposition home or self-care (01) ==
LOC: INPGRE 08:24 → EMEROOGRE 08:24 → INPGRE 11:44 → UNDODISIN 02-25 12:49